=== PATIENT | female | born 1975 ===

== ENCOUNTER 2020-05-24 22:25 | Emergency (ER) | payer BC ==
[~2020-05-24] VITALS: Ht 167.6 cm; Wt 90.0 kg
[2020-05-24 22:32] VITALS: BP 184/117
[2020-05-24] MEDS ORDERED: DIPH,PERTUSS(ACELL),TET VAC/PF 0.5 ML IM-VACC ONE ×2 (23:29→23:30)
[2020-05-25] MEDS ORDERED: NEOSPORIN OINT. PKT 1 PACKET ONE (00:05)
== END 2020-05-25 00:35 | disposition home or self-care (01) ==
LOC: ED 05-25 00:32
DX: S93.601A Unspecified sprain of right foot, initial encounter (principal); S90.414A Abrasion, right lesser toe(s), initial encounter; I10 Essential (primary) hypertension; Z90.710 Acquired absence of both cervix and uterus; Z88.0 Allergy status to penicillin; W01.0XXA Fall on same level from slipping, tripping and stumbling without subsequent striking against object, initial encounter; Y93.89 Activity, other specified; Y92.098 Other place in other non-institutional residence as the place of occurrence of the external cause; Y99.8 Other external cause status
CPT/HCPCS: 90471; 90715; 99283

== ENCOUNTER 2020-09-08 19:54 | Emergency (ER) | payer BC, OTHER ==
[~2020-09-08] VITALS: Ht 167.6 cm; Wt 85.2 kg
[2020-09-08 20:20] LABS: MICROSCOPIC AUTO
[2020-09-08 20:46] LABS: ALBUMIN 3.6 g/dL (3.4-5.0); ANION GAP 7 mmol/L (5-15); CALCIUM 8.6 mg/dL (8.5-10.1); CHLORIDE 103 mmol/L (98-107); CREATININE 1.16 mg/dL (0.55-1.02)
[2020-09-08 21:01] LABS: BASOPHILS % (AUTO) 0 % (0-1); EOSINOPHILS % (AUTO) 0 % (1-7); LYMPHOCYTES % (AUTO) 21 % (22-44); MEAN CORPUSCULAR HEMOGLOBIN 28.6 pg (27.0-34.8); MEAN CORPUSCULAR HGB CONC 33.6 g/dL (32.4-35.8); MEAN PLATELET VOLUME 8.1 fL (7.4-10.4); MONOCYTES % (AUTO) 12 % (2-9); NEUTROPHILS % (AUTO) 67 % (42-75); PLATELET COUNT 180 x10^3/uL (130-400); RED BLOOD COUNT 5.62 x10^6/uL (3.82-5.3); RED CELL DISTRIBUTION WIDTH 14.2 % (9.6-15.2)
[2020-09-08 21:06] LABS: MD NO
--- NOTE | 2020-09-08 23:04 | NUR ---
pt called to room from lobby
[2020-09-09] MEDS ORDERED: OMNIPAQUE 350 MG/ML, 100ML BOTTLE ONE
[2020-09-09] MEDS ORDERED: ONDANSETRON 2MG/ML, 2ML IVPush ONE
[2020-09-09] MEDS ORDERED: MORPHINE SULFATE 4 MG/ML, 1ML IVPush PRN
[2020-09-09] MEDS ORDERED: SODIUM CHLORIDE FLUSH 10ML SYR IVF ONE
[2020-09-09] MEDS ORDERED: ONDANSETRON 2MG/ML, 2ML ONE
[2020-09-09] MEDS ORDERED: MORPHINE SULFATE 4 MG/ML, 1ML ONE (00:01)
[2020-09-09] MEDS ORDERED: SODIUM CHLORIDE 0.9% 1,000ML IVBOLUS ONE ×2 (01:00)
[2020-09-09 02:04] VITALS: BP 153/89
== END 2020-09-09 02:07 | disposition home or self-care (01) ==
LOC: ED 22:33
DX: U07.1 COVID-19 (principal); J02.9 Acute pharyngitis, unspecified; R10.32 Left lower quadrant pain; E86.0 Dehydration; I10 Essential (primary) hypertension; R73.9 Hyperglycemia, unspecified; N17.9 Acute kidney failure, unspecified; R00.0 Tachycardia, unspecified
CPT/HCPCS: 36415; 74177; 80048; 81001; 81025; 82040; 85025; 87086; 87635; 96361; 96374; 96375; 99285; J2270; J2405; J7030; Q9967